=== PATIENT | male | born 1990 | race African-American/Black ===

== ENCOUNTER 2016-09-23 23:15 | Emergency (ER) | payer SELFPAY ==
[~2016-09-23] VITALS: Ht 180.3 cm; Wt 77.1 kg
[~2016-09-23 23:15] MED LIST: ADULT WAL-100 MG/5 M ORAL; TAMIFLU75 MG ORAL
--- NOTE | 2016-09-24 00:38 | Emergency Room Report ---
History of Present Illness General Chief Complaint: Pain Source: Patient Present Illness HPI This is a 26-year-old male with no past medical history. He presents with chief complaint of palpitation. Also with lightheaded and tightness in his chest when this happened. He's been here several times the same thing. Never followup with primary care doctor or soda jerker. Right now he is asymptomatic. Allergies: Coded Allergies: No Known Allergies (Unverified , 02/26/12) Patient History Past Medical History: none, see triage record, old chart reviewed Past Surgical History: none Pertinent Family History: none Social History: Denies: smoking Immunizations: other Reviewed Nursing Documentation: PMH: Agreed, PSxH: Agreed Review of Systems Eye: Denies: blurred vision, eye pain ENT: Denies: ear pain, nose congestion, throat swelling Respiratory: Denies: cough, shortness of breath Cardiovascular: Reports: palpitations, Denies: chest pain Gastrointestinal: Denies: abdominal pain, diarrhea, nausea, vomiting Musculoskeletal: Denies: back pain, joint pain Skin: Denies: rash Neurological: Denies: headache, numbness Endocrine: Denies: increased thirst, increased urine Hematologic/Lymphatic: Denies: easy bruising All Other Systems: negative except mentioned in HPI Physical Exam Vital Signs Date Time Temp Pulse Resp B/P Pulse Ox O2 Delivery O2 Flow Rate FiO2 09/23/16 23:27 98.8 67 18 158/105 99 Room Air vitals normal except high blood pressure. Repeat blood pressures normal Sp02 EP Interpretation: reviewed, normal General Appearance: well appearing, no apparent distress, alert Head: normocephalic, atraumatic Eyes: bilateral eye EOMI, bilateral eye PERRL ENT: hearing grossly normal, normal pharynx Neck: full range of motion, supple, no meningismus Respiratory: chest non-tender, lungs clear, normal breath sounds Cardiovascular #1: regular rate, rhythm, no murmur Gastrointestinal: normal bowel sounds, non tender, no mass, no organomegaly, no bruit, non-distended Musculoskeletal: back normal, gait/station normal, normal range of motion Psychiatric: mood/affect normal Skin: warm/dry Medical Decision Making Diagnostic Impression: Primary Impression: Palpitations ER Course patient with palpitation atypical chest pain. Differential include PVCs, arrhythmia, ACS or PE to name a few. Could be psychogenic/anxiety. He is asymptomatic right now. We'll discharge home. EKG Diagnostic Results EKG Time: 00:37 Rate: normal Rhythm: NSR ST Segments: no acute changes Rhythm Strip Diag. Results Rhythm Strip Time: 00:37 EP Interpretation: yes Rate: 70 Rhythm: NSR, no PVC's, no ectopy Last Vital Signs Date Time Temp Pulse Resp B/P Pulse Ox O2 Delivery O2 Flow Rate FiO2 09/23/16 23:27 98.8 67 18 158/105 99 Room Air Status: improved Disposition: HOME, SELF-CARE Condition: Stable Additional Instructions: Followup with your Dr. within a week. You would benefit from a referral to see a soda jerker for a Holter monitor. DINORAH SHANNON M.D. Sep 24, 2016 00:38
[2016-09-24 00:42] VITALS: BP 145/99
[2016-09-24 00:43] VITALS: BP 145/99
--- NOTE | 2016-09-25 16:17 | Cardiology Report ---
APPROVED REPORT EKG Measurement Heart [id number] Normal sinus rhythm Rightward axis Minimal voltage criteria for LVH, may be normal variant Borderline ECG
== END 2016-09-24 | disposition home or self-care (01) ==
LOC: EMR 23:57
DX: R00.2 Palpitations (principal); R07.89 Other chest pain; R42 Dizziness and giddiness
CPT/HCPCS: 93005; 99283